=== PATIENT | male | born 2005 | race Caucasian/White ===

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

== ENCOUNTER 2023-01-14 10:45 | Outpatient (RCR) | payer BC, SELFPAY | END 2023-05-14 23:59 | disposition home or self-care (01) | PROVIDERS: PCP Family Medicine; Visit Provider Chiropractor | DX: M54.50 Low back pain, unspecified (principal); M99.03 Segmental and somatic dysfunction of lumbar region; M54.16 Radiculopathy, lumbar region; R29.3 Abnormal posture; M54.30 Sciatica, unspecified side; Z51.89 Encounter for other specified aftercare | CPT/HCPCS: 97012; 97110; 97161 ==